=== PATIENT | female | born 1965 | race Caucasian/White ===

== ENCOUNTER 2019-04-30 12:21 | Emergency (ER) | payer OTHER ==
[2019-04-30 12:59] VITALS: BP 124/86
--- NOTE | 2019-04-30 13:15 | UC ---
Respiratory Complaint HPI - HPI Summary HPI Summary: 54 yo female with about a week long hx of cough. Has had nasal congestion and post nasal drip. She states that the cough feels like it's down in her chest. Has felt feverish and had chills. She has had a headache She always feels short winded but states that is a little worse now no n/v/d no chest pain - History of Current Complaint Chief Complaint: UCGeneralIllness Stated Complaint: FLU LIKE SXS Time Seen by Provider: 04/30/19 12:58 Hx Obtained From: Patient Onset/Duration: Gradual Onset, Lasting Days Timing: Constant Severity Initially: Mild Severity Currently: None Pain Intensity: 0 Pain Scale Used: 0-10 Numeric Character: Cough: Nonproductive Alleviating Factors: Bronchodilator Associated Signs And Symptoms: Positive: Negative, Nasal Congestion. Negative: URI - Allergies/Home Medications Allergies/Adverse Reactions: Allergies Allergy/AdvReac Type Severity Reaction Status Date / Time No Known Allergies Allergy Verified 04/30/19 12:52 Home Medications: Home Medications Aspirin EC TAB* [Ecotrin EC Low Dose 81 MG*] 81 mg PO DAILY 04/30/19 [History Confirmed 04/30/19] Atorvastatin* [Lipitor*] 20 mg PO 1700 04/30/19 [History Confirmed 04/30/19] Ibuprofen TAB* [Motrin TAB* 400 MG] 400 mg PO Q6H PRN 04/30/19 [History Confirmed 04/30/19] Metoprolol Succinate XL TAB* [Toprol XL TAB*] 50 mg PO DAILY 04/30/19 [History Confirmed 04/30/19] Pantoprazole TAB * [Protonix TAB*] 20 mg PO DAILY 04/30/19 [History Confirmed ] PMH/Surg Hx/FS Hx/Imm Hx Previously Healthy: Yes - Surgical History Surgical History: Yes Surgery Procedure, Year, and Place: CABG. TONSILLECTOMY. TUBAL LIGATION. BREAST CYST REMOVAL. FISSURECTOMY - Social History Alcohol Use: Occasionally Substance Use Type: None Smoking Status (MU): Former Smoker Review of Systems All Other Systems Reviewed And Are Negative: Yes Constitutional: Positive: Negative Skin: Positive: Negative Eyes: Positive: Negative ENT: Positive: Nasal Discharge, Sinus Congestion Respiratory: Positive: Cough Cardiovascular: Positive: Negative Gastrointestinal: Positive: Negative Genitourinary: Positive: Negative Motor: Positive: Negative Neurovascular: Positive: Negative Musculoskeletal: Positive: Negative Neurological: Positive: Headache Psychological: Positive: Negative Physical Exam Triage Information Reviewed: Yes Appearance: Well-Appearing, No Pain Distress, Well-Nourished Vital Signs: Initial Vital Signs Temp 99.5 F 04/30/19 12:54 Pulse 76 04/30/19 12:54 Resp 17 04/30/19 12:54 BP 124/86 04/30/19 12:54 Pulse Ox 97 04/30/19 12:54 Vital Signs Reviewed: Yes Eyes: Positive: Conjunctiva Clear ENT: Positive: Hearing grossly normal, Pharyngeal erythema, Nasal congestion, Uvula midline. Negative: Nasal drainage, Trismus, Muffled voice Neck: Positive: Supple, Nontender Respiratory: Positive: No respiratory distress, No accessory muscle use, Wheezing - with forced expiration Cardiovascular: Positive: RRR, No Murmur Musculoskeletal: Positive: ROM Intact, No Edema Neurological: Positive: Alert Psychological Exam: Normal Skin Exam: Normal Diagnostics - Radiology No standard instances Radiology Interpretation Completed By: Radiologist Summary of Radiographic Findings: stigmata of copd Respiratory Course/Dx - Differential Dx/Diagnosis Provider Diagnosis: Acute bronchitis Discharge - Sign-Out/Discharge Documenting (check all that apply): Patient Departure All imaging exams completed and their final reports reviewed: Yes - Discharge Plan Condition: Stable Disposition: HOME Prescriptions: Amoxicillin PO (*) [Amoxicillin 875 MG (*)] 875 mg PO BID #14 tab Fluconazole 150 MG (NF) [Diflucan 150 mg (NF)] 150 mg PO ONCE #1 tab Patient Education Materials: Acute Bronchitis (ED) Referrals: Corine Johnson MD [Primary Care Provider] - 5 Days Additional Instructions: you chest XR had some findings consistent with COPD discuss this with your PCP you may need pulmonary function tests - Billing Disposition and Condition Condition: STABLE Disposition: Home
== END 2019-04-30 13:59 | disposition home or self-care (01) ==
LOC: UCCORT 12:21
DX: J20.9 Acute bronchitis, unspecified (principal); Z79.82 Long term (current) use of aspirin; Z87.891 Personal history of nicotine dependence
CPT/HCPCS: 71046; 99202; G0463

== ENCOUNTER 2019-07-03 12:15 | Emergency (ER) | payer OTHER ==
[2019-07-03 13:16] VITALS: BP 136/81
--- NOTE | 2019-07-03 13:33 | UC ---
Respiratory Complaint HPI - HPI Summary HPI Summary: Patient presents to urgent care with 10 days of progressive sinus congestion postnasal drip sore throat alcohol cough. Patient states initially when she blew her nose is yellow,thick green sometimes blood-tinged. Patient denies fevers or chills. Patient has nausea vomiting but states she has decreased appetite and energy. Patient reports your ears feel full. Patient was at [facility] and has had thick clients in and out of the building. Patient has not taken any ggil-slg-nformar medication except for a dose of ibuprofen yesterday. Patient's medications reviewed this visit. Patient does not smoke cigarettes. Patient denies chest pain or shortness of breath. - History of Current Complaint Chief Complaint: UCGeneralIllness Stated Complaint: ACHY,SOLO,THROAT,FEVER Time Seen by Provider: 07/03/19 13:23 Hx Last Menstrual Period: post menapausal ?: No Onset/Duration: Gradual Onset Severity Initially: Mild Severity Currently: Mild Pain Intensity: 2 Pain Scale Used: 0-10 Numeric - Allergies/Home Medications Allergies/Adverse Reactions: Allergies Allergy/AdvReac Type Severity Reaction Status Date / Time No Known Allergies Allergy Verified 07/03/19 13:12 PMH/Surg Hx/FS Hx/Imm Hx Previously Healthy: Yes Endocrine History: Dyslipidemia Cardiovascular History: Cardiac Disease, Hypertension - Surgical History Surgical History: Yes Surgery Procedure, Year, and Place: CABG. TONSILLECTOMY. TUBAL LIGATION. BREAST CYST REMOVAL. FISSURECTOMY - Family History Known Family History: Positive: Non-Contributory - Social History Occupation: Employed Full-time Lives: With Family Alcohol Use: None Substance Use Type: None Smoking Status (MU): Former Smoker When Did the Patient Quit Smoking/Using Tobacco: 30 years ago Review of Systems All Other Systems Reviewed And Are Negative: Yes Constitutional: Positive: Fatigue Skin: Positive: Negative ENT: Positive: Sore Throat, Ear Ache, Nasal Discharge, Sinus Congestion, Sinus Pain/Tenderness Respiratory: Positive: Cough Cardiovascular: Positive: Negative Gastrointestinal: Positive: Negative Genitourinary: Positive: Negative Motor: Positive: Negative Is Patient Immunocompromised?: No Physical Exam - Summary Physical Exam Summary: Vital Signs Reviewed: Yes A+Ox3, no distress, tired appearing Eyes: Conjunctiva Clear, ANGIE. EOM intact and full ENT: Hearing grossly normal TM x 2 clear, turbinates inflammed and boggy, + think PND, max sinus TTP mmoist, uvula midline, no exudate, no erythema Neck: Positive: Supple Respiratory: Positive: No respiratory distress, No accessory muscle use + CTA throughout no w/r, mild intermittent cough Cardiovascular: RRR nl s1, s2 no m/r CBT <2 sec abd soft + BS nt/nd no guarding, no distension Musculoskeletal Exam: FLORES x 4 without difficulty Strength Intact, ROM Intact Neurological: Positive: Alert, + sensation throughout Psychological: Positive: Normal Response To examiner Skin: Positive: no rash, no ecchymosis Triage Information Reviewed: Yes Vital Signs: Initial Vital Signs Temp 99.5 F 07/03/19 13:07 Pulse 87 07/03/19 13:07 Resp 18 07/03/19 13:07 BP 136/81 07/03/19 13:07 Pulse Ox 98 07/03/19 13:07 Respiratory Course/Dx - Course Course Of Treatment: Patient presents to urgent care reporting 10 days of progressive sinus congestion postnasal drip sore throat and cough. Patient denies chest pain or shortness of breath. Patient states she took Motrin yesterday but no other medications for her symptoms. Patient with a history of sinus infections and states this feels similar. On exam patient's blood pressure mildly elevated which is baseline for her. Patient exam consistent with rhinosinusitis. We'll start antibiotics. Flonase. Strict return precautions. Patient has be careful decongestants pressure. Patient states understanding and agreement with plan. Work note written. - Differential Dx/Diagnosis Provider Diagnosis: Rhinosinusitis Discharge ED - Sign-Out/Discharge Documenting (check all that apply): Patient Departure All imaging exams completed and their final reports reviewed: No Studies - Discharge Plan Condition: Stable Disposition: HOME Prescriptions: Amoxicillin/Clavulanate TAB* [Augmentin TAB 875*] 875 mg PO BID #20 tab Fluticasone NASAL SPRAY 50MCG* [Flonase NASAL SPRAY 50MCG*] 2 spray BOTH NARES DAILY #1 btl Patient Education Materials: Rhinosinusitis (ED) Forms: *Work Release Referrals: Corine Johnson MD [Primary Care Provider] - Additional Instructions: - Stay well hydrated. Drink plenty of non-alcoholic, non-caffinated beverages. - Alternate ibuprofen (Advil, Motrin) 600mg and Tylenol every 3 hours for pain or fever. Take with food. Do NOT take for more than 4-5 days. - These infections are spread by secretions - do NOT share eating or drinking utensils - clean items you share with other people such as cell phones, computer mouse, TV remote, computer tablets,etc. Once you have been antibiotics for 2 days, change your toothbrush and your pillowcase. - get plenty of restful sleep - humidify the air in the room where you sleep - boil water, run a hot steam shower, vaporizer, cups of water by heat register - okay to take over the counter decongestant and cough medication - use nasal spray as prescribed - take anitbiotics as prescribed - contact your doctor or return with questions or concerns - Billing Disposition and Condition Condition: STABLE Disposition: Home
== END 2019-07-03 13:54 | disposition home or self-care (01) ==
LOC: UCCORT 12:15
DX: J32.9 Chronic sinusitis, unspecified (principal); Z87.891 Personal history of nicotine dependence; I10 Essential (primary) hypertension; I51.9 Heart disease, unspecified
CPT/HCPCS: 87651; 99212; G0463